=== PATIENT | male | born 1980 | race Caucasian/White ===

== ENCOUNTER 2020-09-12 11:52 | Emergency (ER) | payer BC, OTHER ==
[~2020-09-12] VITALS: Ht 167.6 cm; Wt 162.8 kg
[~2020-09-12 11:52] MED LIST: NONE PER PT
--- NOTE | 2020-09-12 12:48 | NUR ---
PT HERE FOR C/O RIGHT FLANK PAIN X4 DAYS, DENIES PAIN WITH URINATION. WORSENING PAIN TODAY, SEEN AT [facility]DAY PRESCRIBED MUSCLE RELAXANT WITH NO RELIEF.
--- NOTE | 2020-09-12 13:06 | NUR ---
assumed care of pt. kyung from [facility]. pt here for R flank pain/R back pain x4 days. was seen at yesterday for same and given muscle relaxers. pt states no relief with meds. denies injury. pt currently sitting in posiiton of comfort. urine sample colleted and sent
[2020-09-12 13:12] LABS: MICROSCOPIC NOT IND
--- NOTE | 2020-09-12 13:33 | NUR ---
lab at bedside to draw
[2020-09-12 14:01] LABS: BASOPHILS % (AUTO) 2 % (0-1); EOSINOPHILS % (AUTO) 1 % (1-7); LYMPHOCYTES % (AUTO) 14 % (22-44); MEAN CORPUSCULAR HEMOGLOBIN 32.4 pg (27.5-34.5); MEAN CORPUSCULAR HGB CONC 34.5 g/dL (33.2-36.2); MEAN PLATELET VOLUME 7.1 fL (7.4-10.4); MONOCYTES % (AUTO) 10 % (2-9); NEUTROPHILS % (AUTO) 73 % (42-75); PLATELET COUNT 300 x10^3/uL (130-400); RED BLOOD COUNT 4.86 x10^6/uL (4.38-5.82); RED CELL DISTRIBUTION WIDTH 12.7 % (9.4-14.8)
[2020-09-12 14:09] LABS: ALBUMIN 3.5 g/dL (3.4-5.0); ANION GAP 6 mmol/L (5-15); CALCIUM 9.5 mg/dL (8.5-10.1); CHLORIDE 108 mmol/L (98-107)
[2020-09-12 14:13] LABS: ALANINE AMINOTRANSFERASE 34 U/L (12-78); ALKALINE PHOSPHATASE 23 U/L (45-117); BILIRUBIN,TOTAL 0.5 mg/dL (0.2-1.0); CREATININE 1.16 mg/dL (0.7-1.3); TOTAL PROTEIN 7.2 g/dL (6.4-8.2)
--- NOTE | 2020-09-12 14:24 | NUR ---
Sánchez MALDONADO at bedside for recheck
[2020-09-12 15:06] VITALS: BP 149/76
== END 2020-09-12 15:10 | disposition home or self-care (01) ==
LOC: ED 13:49
DX: M54.6 Pain in thoracic spine (principal)
CPT/HCPCS: 36415; 80053; 81003; 83690; 85025; 93005; 99284

== ENCOUNTER 2020-10-27 20:23 | Emergency (ER) | payer BC ==
[~2020-10-27] VITALS: Ht 167.6 cm; Wt 170.0 kg
--- NOTE | 2020-10-27 20:37 | NUR ---
pt presents to ed with c/o LBP, denies any radiating down leg and denies trauma. pt a&o, resps even and unlabored, nadn.
[2020-10-27] MEDS ORDERED: KETOROLAC 30 MG/1 ML ONE (20:42)
[2020-10-27 20:45] VITALS: BP 156/90
[2020-10-27] MEDS ORDERED: KETOROLAC 30 MG/1 ML IM ONE (21:00)
--- NOTE | 2020-10-27 21:15 | NUR ---
pt medicated per order, tolerated well. vss, nadn.
--- NOTE | 2020-10-27 21:39 | NUR ---
pt educated on dc instructions, verbalized undertsanding. ambulatory to dc desk with steady gait, no complaints at time of dc.
== END 2020-10-27 21:42 | disposition home or self-care (01) ==
LOC: ED 20:50
DX: S39.012A Strain of muscle, fascia and tendon of lower back, initial encounter (principal); F17.290 Nicotine dependence, other tobacco product, uncomplicated; X58.XXXA Exposure to other specified factors, initial encounter; Y93.89 Activity, other specified; Y92.89 Other specified places as the place of occurrence of the external cause; Y99.8 Other external cause status
CPT/HCPCS: 96372; 99283; J1885